=== PATIENT | male | born 1980 | race Two or more races ===

== ENCOUNTER 2021-10-09 12:51 | Emergency (ER) | payer OTHER ==
[~2021-10-09] VITALS: Ht 170.2 cm; Wt 90.7 kg
[~2021-10-09 12:51] MED LIST: LEVSIN/SL0.125 MG SL; PREVACID30 MG PO
[2021-10-09] MEDS ORDERED: BUDEO.25 IH (18:27)
== END 2021-10-09 18:48 | disposition home or self-care (01) ==
LOC: ER 12:51
DX: U07.1 COVID-19 (principal); J06.9 Acute upper respiratory infection, unspecified